=== PATIENT | male | born 1955 | race Caucasian/White ===

== ENCOUNTER 2023-01-18 18:39 | Emergency (ER) | payer OTHER, SELFPAY ==
[2023-01-18] VITALS (11 sets, daily range): BP systolic 135–181; BP diastolic 70–93; PULSE 68–73; RESP 18; TEMP 37.1; O2SAT 95–97; BMI 40.4
--- NOTE | 2023-01-18 19:05 | DI.RAD.S_ITS ---
PROCEDURE: XR CHEST 2V INDICATIONS: Cough x 2 weeks. TECHNIQUE: 2 views of the chest were acquired. COMPARISON: [facility], , CHEST 2 VIEW, 01/08/2008, 21:58. FINDINGS: Surgical changes and devices: Median sternotomy Lungs and pleura: Patchy opacities present right lung base. Similar streaky left basilar opacities likely atelectasis and/or scarring. No large pleural effusion. No pneumothorax. Mediastinum: Mediastinal contours are normal. Heart size is normal. Bones and chest wall: No suspicious bony abnormalities. Soft tissues appear unremarkable. IMPRESSION: Right basilar opacities present which could represent aspiration and/or pneumonia in the appropriate clinical setting. Dictated by: Sandoval Cool M.D. on 01/18/2023 at 19:37 Approved by: Sandoval Cool M.D. on 01/18/2023 at 19:38
[2023-01-18 20:01] LABS: COVID19 -Nasal RAPID Negative (Negative)
[2023-01-18 20:51] LABS: WBC Urine 10-30/HPF (0-5/HPF)
[2023-01-18 20:52] LABS: Bacteria Urine Many (>30); Culture Indicated Urine Specimen Cultured; RBC Urine 30-100/HPF (0-5/HPF); Squamous Epithelial Cell Urine None Seen (0-5/HPF)
--- NOTE | 2023-01-18 21:11 | PC.NURSE ---
Patient reports wound to right medial lower foot. Removed 2 compression socks and a bandaid to visualize silver dollar sized white area of maceration. Patient has been cleaning wound daily with peroxide, applying honey, and covering with bandaid. White area appeared to be skin that easily pulled away from wound revealing wound bed that is erythemic. Patient also reports 2 weeks of a cough that is dry and is made better by halls cough lozenge. Also reports 2 days of urinary incontinence that is new for him.
--- NOTE | 2023-01-18 23:03 | ED.WOUNDLAC ---
HPI - Wound/Laceration General Chief Complaint: Wound/Laceration Stated Complaint: Urinary incontinence Time Seen by Provider: 01/18/23 22:40 Source: patient Mode of arrival: Ambulatory History of Present Illness HPI narrative: Patient is a 67-year-old male history of coronary artery disease, CABG hypertension hyperlipidemia, significant lower extremity edema he wears low-grade compression socks he does get wounds on his lower legs presenting today with a variety of symptoms. Sounds as though he has had some mild cough maybe some shortness of breath ongoing for a couple of weeks. He is not really coughing up any sputum he denies any chest pain. He has a wound on his right heel which has been there for a couple weeks and progressively getting bigger. No significant drainage or foul smell. Today he presents with fever of 1011 but is afebrile here. He has severe urinary frequency and hesitation with some dysuria. He started having incontinence. This was new for him. They ultimately called a nurse line who recommended he come to the ED. Related Data Home Medications Medication Instructions Recorded Confirmed ASPIRIN CHEW - 81 mg PO ##0 01/08/08 (ASPIRIN) OMEPRAZOLE 20 mg PO ##0 01/08/08 atenolol 50 mg tablet 50 mg PO QDAY ##0 02/18/08 atorvastatin 80 mg tablet 80 mg PO HS ##0 06/28/16 Previous Rx's Medication Instructions Recorded warfarin 2 mg tablet (Coumadin) 2 mg PO SEE INSTRUCTIONS #495 tabs 08/14/16 hydrochlorothiazide 25 mg tablet 25 mg PO QDAY #90 tabs 09/30/16 furosemide 20 mg tablet (Lasix) 20 mg PO DAILY #4 tabs 01/19/23 levofloxacin 500 mg tablet 500 mg PO DAILY #5 tabs 01/19/23 Allergies Allergy/AdvReac Type Severity Reaction Status Date / Time No Known Drug Allergies Allergy Verified 01/18/23 18:57 Review of Systems Review of Systems ROS Unobtainable: All systems reviewed & are unremarkable except as noted in HPI and below Patient History Social History Smoking Status: Never smoker Smoking Status: Never smoker alcohol intake frequency: 3 or more drinks per day Alcohol type: hard liquor Substance Use Type: does not use Exam Initial Vital Signs Initial Vital Signs: Vital Signs Temperature 98.7 F 01/18/23 18:57 Pulse Rate 72 01/18/23 18:57 Respiratory Rate 18 01/18/23 18:57 Blood Pressure 135/70 01/18/23 18:57 Pulse Oximetry 96 01/18/23 18:57 Oxygen Delivery Method Room Air 01/18/23 18:57 GENERAL: Alert 67-year-old male morbidly obese and in no acute distress. HEENT: Head atraumatic,EOMI, pupils reactive, face symmetric, moist mucous membranes CARDIOVASCULAR: Regular rate and rhythm without murmurs, rubs or gallops. RESPIRATORY: Mild rales at bases no respiratory distress no wheezing ABDOMEN: Soft, nontender. Normoactive bowel sounds all 4 quadrants. No guarding or rebound. EXTREMITIES: Normal range of motion, no clubbing or edema. Neurovascularly intact NEUROLOGICAL: Alert and oriented x4.Normal gait and speech. SKIN: right medial heel 3x3cm good granulation tissue no surrounding erythema no small or gross draining Course Orders Ordered: ED Orders 01/18/23 20:10 Urine Culture Stat Urine Microscopic Stat 01/18/23 23:32 EKG-12 Lead Stat 01/18/23 23:49 Complete Blood Count AUTO DIFF Stat Comprehensive Metabolic Panel Stat Lipase Stat NT-proBNP (BNP-Adult 18+) Stat Troponin & CK Cardiac Panel Stat Discontinued Medications Levofloxacin (Levofloxacin 250 Mg Tablet) 500 mg PO NOW ONE Stop: 01/19/23 01:07 Last Admin: 01/19/23 01:13 Dose: 500 mg Documented By: MARSHA Vital Signs Vital signs: Vital Signs - 8 hr 01/18/23 21:02 01/18/23 21:30 01/18/23 21:31 Pulse Rate 72 69 69 Blood Pressure Pulse Oximetry 95 95 95 01/18/23 21:31 01/18/23 22:00 01/18/23 22:01 Pulse Rate 73 72 Blood Pressure 170/78 H Pulse Oximetry 97 97 01/18/23 22:01 01/18/23 22:30 01/18/23 22:31 Pulse Rate 68 69 Blood Pressure 174/80 H Pulse Oximetry 95 95 01/18/23 22:31 01/18/23 23:00 01/18/23 23:30 Pulse Rate 73 71 Blood Pressure 177/75 H Pulse Oximetry 95 95 01/18/23 23:31 01/18/23 23:31 01/19/23 00:00 Pulse Rate 71 73 Blood Pressure 181/93 H Pulse Oximetry 95 95 01/19/23 00:02 01/19/23 00:02 01/19/23 00:30 Pulse Rate 72 70 Blood Pressure 116/58 L Pulse Oximetry 95 94 01/19/23 00:31 01/19/23 00:31 01/19/23 01:00 Pulse Rate 70 70 Blood Pressure 147/67 H Pulse Oximetry 94 93 01/19/23 01:01 01/19/23 01:01 Pulse Rate 70 Blood Pressure 144/65 H Pulse Oximetry 93 MDM - Wound/Laceration Lab Data 01/18/23 23:49 01/18/23 23:49 Labs: Lab Results 01/18/23 01/18/23 01/18/23 Range/Units 19:06 20:10 23:49 WBC 10.1 (4.5-11.0) X10^3/uL RBC 3.67 L (4.5-5.9) X10^6/uL Hgb 12.8 L (13.5-17.5) g/dL Hct 35.5 L (41-53) % MCV 96.7 (80-100) fL MCH 34.7 H (26-34) PG MCHC 35.9 (30-36) % RDW 14.1 (11.6-14.8) % Plt Count 256 (150-400) X10^3/uL Neut % (Auto) Not Reportable Lymph % (Auto) Not Reportable Pike % (Auto) Not Reportable Eos % (Auto) Not Reportable Baso % (Auto) Not Reportable Lymph # (Auto) Not Reportable Pike # (Auto) Not Reportable Baso # (Auto) Not Reportable Total Counted 100 Seg Neutrophils % 70.0 (38-70) % Band Neutrophils % 9.0 H (3-7) % Lymphocytes % (Manual) 12.0 L (25-45) % Monocytes % (Manual) 8.0 (2-11) % Myelocytes % 1.0 H (-0) % Neutrophils # (Manual) 7979 H (3512-5351) /uL RBC Morphology Normal morphology Sodium 133 L (137-145) mmol/L Potassium 3.8 (3.4-5.1) mmol/L Chloride 95 L (98-107) mmol/L Carbon Dioxide 29 (22-32) mmol/L BUN 26 H (9-20) mg/dL Creatinine 1.49 H (0.66-1.25) mg/dL Estimated GFR 51 L (>60) mL/min BUN/Creatinine Ratio 17.4 (6-22) Glucose 134 H (80-110) mg/dL Calcium 9.6 (8.4-10.2) mg/dL Total Bilirubin 1.0 (0.2-1.3) mg/dL AST 34 (17-59) IU/L ALT 31 (<50) IU/L Alkaline Phosphatase 68 (38-126) U/L Total Creatine Kinase 119 (55-170) U/L Troponin I 0.023 (0.01-0.034) ng/mL NT-Pro-B Natriuret Pep 6940 H (<125) pg/mL Total Protein 7.9 (6.3-8.2) g/dL Albumin 4.0 (3.5-5.0) g/dL Globulin 3.9 (1.7-4.1) g/dL Albumin/Globulin Ratio 1.0 (1.0-2.8) Lipase 70 (23-300) U/L Urine RBC 30-100/hpf H (0-5/HPF) Urine WBC 10-30/hpf H (0-5/HPF) Ur Squamous Epith Cells None seen (0-5/HPF) Urine Bacteria Many (>30) H (None) Ur Culture Indicated? Specimen cultured SARS-CoV-2 (PCR) Negative (Negative) Imaging Data Chest x-ray: Radiologist's Impression: PROCEDURE: XR CHEST 2V INDICATIONS: Cough x 2 weeks. TECHNIQUE: 2 views of the chest were acquired. COMPARISON: [facility], , CHEST 2 VIEW, 01/08/2008, 21:58. FINDINGS: Surgical changes and devices: Median sternotomy Lungs and pleura: Patchy opacities present right lung base. Similar streaky left basilar opacities likely atelectasis and/or scarring. No large pleural effusion. No pneumothorax. Mediastinum: Mediastinal contours are normal. Heart size is normal. Bones and chest wall: No suspicious bony abnormalities. Soft tissues appear unremarkable. IMPRESSION: Right basilar opacities present which could represent aspiration and/or pneumonia in the appropriate clinical setting. Dictated by: Sandoval Cool M.D. on 01/18/2023 at 19:37 ECG Data Interpretation: Sinus rhythm rate 74 HI interval 306 QRS [address] changes Q wave noted in V3 T-wave inversion in V to MDM Narrative Medical decision making narrative: Patient presents today with on going variety of symptoms including cough some shortness of breath chronic wound urinary incontinence. He reports fever at home patient is afebrile here vitals are stable no evidence of sepsis. Urine is positive for leukocytes and it is cultured. Creatinine is 1.49 slightly increased from 1.3 previously. No significant electrolyte abnormality although mildly hyponatremic at 133. He is also COVID negative. He has an ongoing right heel wound will ultimately need wound referral which is sent. Chest x-ray shows an aspiration pneumonia. I do not suspect aspiration. However BNP 6940, cough and chest x-ray findings are probably related to congestive failure. At this time he is not hypoxic. Does not meet any sort of admission criteria. Discussed with him he Tinel outpatient echocardiogram. Will start him on Levaquin to help treat possibly to pneumonia and UTI. Right heel wound full need wound care Discharge Plan Departure Patient Disposition: Home Clinical Impression: Acute UTI, CHF (congestive heart failure), Pneumonia Instructions: Heart Failure, DI for Urinary Tract Infection (UTI) Activity Restrictions/Additional Instructions: *You have been diagnosed with UTI congestive heart failure *What to do: At this time you have a very mild case of pneumonia may be related to congestive heart failure. I recommend outpatient echocardiogram. Use off a bladder infection. Keep wound covered this will need wound care *Continue to take medications as directed--> SAFEWAY [place] Levaquin 500 mg once daily for 5 days Lasix 20 mg once a day for 3 days *Follow up with your primary care provider in 2-3 days or call [phone] Recommend calling wound care I sent in a referral. *Return to ER if you should have increasing confusion chest pain shortness of breath swelling or any new, worsening or concerning symptoms Prescriptions: New levofloxacin 500 mg tablet 500 mg PO DAILY Qty: 5 0RF furosemide [Lasix] 20 mg tablet 20 mg PO DAILY Qty: 4 0RF No Action ASPIRIN CHEW - (ASPIRIN) 81 mg PO Qty: 0 OMEPRAZOLE 20 mg PO Qty: 0 atenolol 50 MG tablet 50 mg PO QDAY Qty: 0 atorvastatin 80 MG tablet 80 mg PO HS Qty: 0 warfarin [Coumadin] 2 MG tablet 2 mg PO SEE INSTRUCTIONS Qty: 495 3RF hydrochlorothiazide 25 MG tablet 25 mg PO QDAY Qty: 90 2RF Referrals: Jean Hernandez MD [Primary Care Provider] - Vikram Elder MD [Non-Staff] - Stand Alone Forms: Patient Portal/API
[2023-01-19] VITALS: PULSE 73; O2SAT 95
[2023-01-19 00:02] VITALS: BP 116/58; PULSE 72; O2SAT 95
[2023-01-19 00:07] LABS: Red Blood Cell Count 3.67 X10^6/uL (4.5-5.9); White Blood Cell Count 10.1 X10^3/uL (4.5-11.0)
[2023-01-19 00:08] LABS: Add Manual Diff / Slide Review YES; Alanine Aminotransferase 31 IU/L (<50); Alkaline Phosphatase 68 U/L (38-126); Aspartate Aminotransferase 34 IU/L (17-59); BUN Creatinine Ratio 17.4 (6-22); Blood Urea Nitrogen 26 mg/dL (9-20); Calcium 9.6 mg/dL (8.4-10.2); Carbon Dioxide 29 mmol/L (22-32); Chloride 95 mmol/L (98-107); Creatine Kinase 119 U/L (55-170); Estimated Glomerular Filt Rate 51 mL/min (>60); Globulin 3.9 g/dL (1.7-4.1); Glucose 134 mg/dL (80-110); HEMOLYSIS < 15 (0-50); Hematocrit 35.5 % (41-53); Hemoglobin 12.8 g/dL (13.5-17.5); Lipase 70 U/L (23-300); Mean Corpuscular HGB Conc 35.9 % (30-36); Mean Corpuscular Hemoglobin 34.7 PG (26-34); Mean Corpuscular Volume 96.7 fL (80-100); Platelet Count 256 X10^3/uL (150-400); Potassium 3.8 mmol/L (3.4-5.1); Red Cell Distribution Width 14.1 % (11.6-14.8); Sodium 133 mmol/L (137-145); Total Protein 7.9 g/dL (6.3-8.2)
[2023-01-19 00:20] LABS: NT-proBNP (BNP-Adult 18+) 6940 pg/mL (<125); Troponin I 0.023 ng/mL (0.01-0.034)
[2023-01-19 00:30] VITALS: PULSE 70; O2SAT 94
[2023-01-19 00:31] VITALS: BP 147/67; PULSE 70; O2SAT 94
[2023-01-19 01:00] VITALS: PULSE 70; O2SAT 93
[2023-01-19 01:01] VITALS: BP 144/65; PULSE 70; O2SAT 93
[2023-01-19 01:11] LABS: Neutrophils Absolute Manual 7979 /uL (3000-5900); Total Cells Counted 100
[2023-01-19 01:12] LABS: RBC Morphology Normal Morphology
[2023-01-19] MEDS: levoFLOXacin 250 MG TABLET 500 MG PO (01:13)
== END 2023-01-19 01:27 | disposition home or self-care (01) ==
PROVIDERS: Emergency Provider Emergency Medicine; PCP Family Medicine
DX: N39.0 Urinary tract infection, site not specified (principal); I50.9 Heart failure, unspecified; J18.9 Pneumonia, unspecified organism; Z79.01 Long term (current) use of anticoagulants; Z20.822 Contact with and (suspected) exposure to COVID-19
CPT/HCPCS: 36415; 71046; 80053; 81003; 81015; 82550; 83690; 83880; 84484; 85007; 85025; 87077; 87086; 87186; 87635; 93005; 99284; C9803